=== PATIENT | female | born 1995 | race African-American/Black ===

== ENCOUNTER 2021-11-04 17:58 | Emergency (ER) | payer MEDICAID, SELFPAY ==
[2021-11-04 18:27] VITALS: BP 125/90; PULSE 96; RESP 20; TEMP 36.6; O2SAT 99; BMI 21.9
--- NOTE | 2021-11-04 18:54 | ED.GENADULT ---
HPI - General Adult General Chief complaint: Cough Stated complaint: 20 weeks , struggling to breathe Time Seen by Provider: 11/04/21 18:07 History of Present Illness HPI narrative: This 26-year-old female is 20 weeks and comes in reporting upper respiratory symptoms including cough, sore throat, generalized aches and pains, and shortness of breath. These symptoms began within the last day. She arrives with normal vital signs and oximetry at 99% on room air. She does understand some anger list but a scientist is used for [place] translation. Related Data Home Medications Medication Instructions Recorded Confirmed aspirin 81 mg tablet,delayed mg 11/04/21 release Previous Rx's Medication Instructions Recorded acetaminophen 300 mg-codeine 30 mg 1 tab PO Q6H PRN pain #20 tabs 11/04/21 tablet Allergies Allergy/AdvReac Type Severity Reaction Status Date / Time No Known Drug Allergies Allergy Verified 11/04/21 18:27 Review of Systems Status of ROS: Reports: 10 or more systems reviewed and unremarkable except as noted in History and below Narrative: Constitutional: No fevers, no weight gain or loss. Eyes: No discharge. No vision changes. HENT: Nasal congestion and sore throat with cough. Cardiovascular: No chest pain, no palpitations. Respiratory: No wheezes. Gastrointestinal: No abdominal pain, no vomiting, no diarrhea. She feels the baby moving normally. Genitourinary: No dysuria, no hematuria. Musculoskeletal: Normal range of motion. Skin: No rashes, no pruritis. Neurological: No dizziness, weakness, sensory change, speech change. Endo/Heme/Allergies: No bruising or bleeding. No polydipsia. Pysch: no suicidality, no anxiety, no insomnia. All other systems reviewed and are negative. PFSH [facility] Social History Smoking Status: Never smoker Do you use any of these nicotine containing products: None Second hand tobacco smoke exposure: No How often do you have a drink containing alcohol: never How often do you have six or more drinks on one occasion: Never AUDIT-C Alcohol total score: 0 Non-prescribed substance use: denies use service: No Exam Narrative: Exam Narrative: Constitutional: Well-developed, well-nourished, no acute distress. HEENT: Normocephalic, atraumatic. Neck: Normal range of motion. Nontender. Supple. Heart: Regular. No murmurs. Normal rate. Intact distal pulses. Lungs: Clear to auscultation. No chest discomfort. No wheezes, rhonchi, or rales. Abdomen: Normal bowel sounds. Nontender. No rebound tenderness. Genitalia: Deferred. Back: No midline tenderness. Normal range of motion. Extremities: Normal range of motion. No injury. Skin: Intact. No rash. Warm. No erythema or pallor. Neurologic: No altered sensation. No weakness. Alert and oriented. Psychiatric: No suicidality. No anxiety or depression. No insomnia. Nursing notes and vitals signs are reviewed. Const: Vital Signs, click to edit/add: Vital Signs - 24 hr 11/04/21 18:27 11/04/21 19:15 Temperature 98 F Pulse Rate [Pulse Oximeter] 96 94 Respiratory Rate 20 Blood Pressure [Ri ght Forearm] 125/90 H Pulse Oximetry 99 100 Oxygen Delivery Me thod Room Air Room Air Course Vital Signs Vital signs: Initial Vital Signs Temperature 98 F 11/04/21 18:27 Temperature Source Temporal Artery Scan 11/04/21 18:27 Pulse Rate 96 11/04/21 18:27 Pulse Rhythm 11/04/21 18:27 Respiratory Rate 20 11/04/21 18:27 Blood Pressure 125/90 H 11/04/21 18:27 Blood Pressure Mean 101 11/04/21 18:27 Blood Pressure Position Supine 11/04/21 18:27 Pulse Oximetry 99 11/04/21 18:27 Oxygen Delivery Method 11/04/21 18:27 Vital Signs Temperature 98 F 11/04/21 18:27 Pulse Rate 96 11/04/21 18:27 Respiratory Rate 20 11/04/21 18:27 Blood Pressure 125/90 H 11/04/21 18:27 Pulse Oximetry 99 11/04/21 18:27 Oxygen Delivery Method 11/04/21 18:27 Temperature 98 F 11/04/21 18:27 Pulse Rate 94 11/04/21 19:15 Respiratory Rate 20 11/04/21 18:27 Blood Pressure 125/90 H 11/04/21 18:27 Pulse Oximetry 100 11/04/21 19:15 Oxygen Delivery Method 11/04/21 19:15 Medical Decision Making MDM Narrative Medical decision making narrative: This patient is 20 weeks and comes in with upper respiratory symptoms. Her vital signs were all within normal range. Testing for COVID and influenza today are both negative. The patient is okay to return home. I did provide some tablets of Tylenol 3 for symptomatic relief. I describe signs and symptoms that would indicate a need for return and re-evaluation. Lab Data Labs: Lab Results 11/04/21 Range/Units 18:58 SARS-CoV-2 (PCR) Negative SARS-CoV-2 (Negative) Influenza Type A (PCR) Negative PCR FLU A (Negative) Influenza Type B (PCR) Negative PCR FLU B (Negative) Discharge Plan Discharge Clinical Impression: Acute upper respiratory infection Patient Disposition: Home, Self-Care Condition: Stable Instructions: Upper Respiratory Infection (ED) Additional Instructions: Take medication as needed and indicated. Follow up with MD or return if worsening. Prescriptions: New acetaminophen-codeine 300-30 mg tablet 1 tab PO Q6H PRN (Reason: pain) Qty: 20 0RF No Action aspirin 81 mg tablet,delayed release (DR/EC) Label Comments: TAKE ONE TABLET BY MOUTH EVERY DAY WITH MEAL Follow Up/Referrals: Edda Lam MD [Primary Care Provider] - Stand Alone Forms: [employer] Info Instructions
[2021-11-04 19:15] VITALS: PULSE 94; O2SAT 100
[2021-11-04 19:40] LABS: PCR FLU A Negative PCR FLU A (Negative); PCR FLU B Negative PCR FLU B (Negative)
[2021-11-04 19:49] LABS: SARS PCR* Negative SARS-CoV-2 (Negative)
== END 2021-11-04 20:20 | disposition home or self-care (01) ==
PROVIDERS: Emergency Provider Emergency Medicine Emergency Medical Services; PCP Family Medicine
DX: J06.9 Acute upper respiratory infection, unspecified (principal); Z3A.20 20 weeks gestation of pregnancy
CPT/HCPCS: 87502; 87635; 99283; 99284

== ENCOUNTER 2022-02-22 20:51 | Emergency (ER) | payer MEDICAID, SELFPAY ==
[2022-02-22 21:08] VITALS: BP 118/81; PULSE 111; RESP 20; TEMP 37.5; O2SAT 99; BMI 34.6
[2022-02-22 21:46] LABS: PCR FLU A Negative PCR FLU A (Negative); PCR FLU B Negative PCR FLU B (Negative)
[2022-02-22 21:53] LABS: SARS PCR* POSITIVE SARS-CoV-2 (Negative)
--- NOTE | 2022-02-22 22:09 | ED_ITS ---
HPI - General Adult General Time Seen by Provider: 22:10 Date Seen: 02/22/22 Chief complaint: Cough Stated complaint: Fever,Cough Time Seen by Provider: 02/22/22 21:53 Source: patient and court interpreter Mode of arrival: ambulatory Limitations: no limitations History of Present Illness HPI narrative: 26-year-old at about 36 weeks who presents today with cough, body aches, fever, headache, runny nose starting 2 days ago. Has taken Tylenol with minimal improvement. No vaginal bleeding or vaginal discharge, no abdominal pain or cramping, positive movement. No breathing difficulty. No abdominal pain did have some vomiting earlier. Related Data Home Medications Medication Instructions Recorded Confirmed aspirin 81 mg tablet,delayed 81 mg PO DAILY 11/04/21 02/22/22 release famotidine 20 mg tablet 20 mg PO Q12H 02/22/22 02/22/22 polyethylene glycol 3350 17 17 g PO DAILY 02/22/22 02/22/22 gram/dose oral powder Allergies Allergy/AdvReac Type Severity Reaction Status Date / Time No Known Drug Allergies Allergy Verified 11/04/21 18:27 Review of Systems Status of ROS: Reports: 10 or more systems reviewed and unremarkable except as noted in History and below PFSH PFSH Medical History COVID-19 Surgical History No significant past surgical history Social History Smoking Status: Never smoker Do you use any of these nicotine containing products: None Second hand tobacco smoke exposure: No How often do you have a drink containing alcohol: never How often do you have six or more drinks on one occasion: Never AUDIT-C Alcohol total score: 0 Non-prescribed substance use: denies use service: No Exam Narrative: Exam Narrative: General: Well-developed and well-nourished, no acute distress Head: Atraumatic and normocephalic Eyes: Pupils are equal reactive, extraocular motions intact, conjunctiva clear ENT: External nose and ears are normal, posterior pharynx without erythema or exudate Neck: No midline cervical tenderness, full spontaneous range of motion the neck, trachea midline, no adenopathy Heart: Regular rate and rhythm no murmurs or thrills Lungs: Clear to auscultation bilaterally without wheezes or crackles Abdomen: Soft, gravid, nontender Musculoskeletal: No tenderness, deformity, or edema Neurologic: Awake, alert, and oriented x3, no gross focal neurologic deficits, cranial nerves intact as tested Psych: Mood and affect are appropriate Skin: No rashes Const: Vital Signs, click to edit/add: Vital Signs - 24 hr 02/22/22 21:08 Temperature 99.5 F Pulse Rate [Right Pulse Oximeter] 111 H Respiratory Rate 20 Blood Pressure [Ri ght Upper Arm] 118/81 Pulse Oximetry 99 Oxygen Delivery Me thod Room Air Course Course Hospital Course: Patient seen and examined, prior records reviewed. Patient presents with upper respiratory symptoms plus body aches, fever. COVID positive. No respiratory distress, lungs are clear, no hypoxia. Discussed diagnosis with patient, she is not a candidate for antivirals. Continue symptom management. Will have Women's Health evaluate , patient has no -related complaints today. Vital Signs Vital signs: Initial Vital Signs Temperature 99.5 F 02/22/22 21:08 Temperature Source Temporal Artery Scan 02/22/22 21:08 Pulse Rate 111 H 02/22/22 21:08 Respiratory Rate 20 02/22/22 21:08 Blood Pressure 118/81 02/22/22 21:08 Blood Pressure Mean 93 02/22/22 21:08 Blood Pressure Position Sitting 02/22/22 21:08 Pulse Oximetry 99 02/22/22 21:08 Oxygen Delivery Method 02/22/22 21:08 Vital Signs Temperature 99.5 F 02/22/22 21:08 Pulse Rate 111 H 02/22/22 21:08 Respiratory Rate 20 02/22/22 21:08 Blood Pressure 118/81 02/22/22 21:08 Pulse Oximetry 99 02/22/22 21:08 Oxygen Delivery Method 02/22/22 21:08 Temperature 99.5 F 02/22/22 21:08 Pulse Rate 111 H 02/22/22 21:08 Respiratory Rate 20 02/22/22 21:08 Blood Pressure 118/81 02/22/22 21:08 Pulse Oximetry 99 02/22/22 21:08 Oxygen Delivery Method 02/22/22 21:08 Medical Decision Making Medical Records Medical records reviewed: Yes I reviewed the patient's medical records Lab Data Lab results reviewed: Yes I reviewed the patient's lab results Labs: Lab Results 02/22/22 Range/Units 21:00 SARS-CoV-2 (PCR) POSITIVE SARS-CoV-2 A (Negative) Influenza Type A (PCR) Negative PCR FLU A (Negative) Influenza Type B (PCR) Negative PCR FLU B (Negative) Discharge Plan Discharge Clinical Impression: COVID-19 affecting in third trimester Patient Disposition: Home w/ Parent or Adult Condition: Stable Instructions: COVID-19 (Coronavirus Disease 2019) (ED) Additional Instructions: Continue Tylenol, make sure you are drinking plenty of fluids. Use medicine for nausea as needed. Follow-up with your doctor next week. Activity Level: No Restrictions Discharge Diet: Regular Prescriptions: No Action aspirin 81 mg tablet,delayed release (DR/EC) 81 mg PO DAILY Label Comments: TAKE ONE TABLET BY MOUTH EVERY DAY WITH MEAL famotidine 20 mg tablet 20 mg PO Q12H Label Comments: TAKE ONE TABLET BY MOUTH TWICE A DAY polyethylene glycol 3350 17 gram/dose powder 17 g PO DAILY Label Comments: MIX ONE SCOOP (17GM) IN LIQUID THEN TAKE BY MOUTH ONCE DAILY. Follow Up/Referrals: Edda Lam MD [Primary Care Provider] - Stand Alone Forms: [email or web address] Info Instructions
--- NOTE | 2022-02-22 22:55 | ED.NURSE ---
OB RN at bedside monitoring HR.
== END 2022-02-22 23:52 | disposition home or self-care (01) ==
LOC: ED 22:13
PROVIDERS: Emergency Provider Family Medicine; PCP Family Medicine
DX: O98.513 Other viral diseases complicating pregnancy, third trimester (principal); U07.1 COVID-19; Z86.16 Personal history of COVID-19; Z3A.36 36 weeks gestation of pregnancy
CPT/HCPCS: 87631; 99284

== ENCOUNTER 2022-03-12 18:56 | Inpatient (IN) | payer MEDICAID, SELFPAY ==
[2022-03-12 19:02] VITALS: BP 134/90; PULSE 113
[2022-03-12 19:29] VITALS: BMI 35.4
[2022-03-12] MEDS: miSOPROStoL 25 MCG/0.25 TABLET PO ×2 (19:42→22:17)
[2022-03-12 19:45] VITALS: TEMP 37.1
[2022-03-12 20:28] LABS: SARS PCR* Negative SARS-CoV-2 (Negative)
[2022-03-12 21:53] VITALS: BP 142/91; PULSE 86
[2022-03-12 22:15] VITALS: BP 119/67; PULSE 91; TEMP 36.9
[2022-03-12 23:30] VITALS: TEMP 37.3
[2022-03-13] VITALS (21 sets, daily range): BP systolic 103–179; BP diastolic 54–98; PULSE 80–102; RESP 16–18; TEMP 36.6–37.2
[2022-03-13] MEDS: miSOPROStoL 25 MCG/0.25 TABLET PO ×4 (00:17→08:54)
--- NOTE | 2022-03-13 08:52 | PM.OBHPLI ---
OB - H&P: HPI Labor/Induction History of Present Illness Time Seen by Provider: 08:52 Date Seen: 03/13/22 Chief Complaint: The patient is a 26 year old 1 para 0 at 38+6 weeks gestation by LMP c/w 10wk US, who presents with leaking fluid. Chief complaint: Maternity : 1 Para: 0 Date of last menstrual period: 06/14/21 Estimated date of delivery: 03/21/22 Gestational age based on last menstrual period: 38 Narrative: Paula Newman is a 26 year old 1 para 0 at 38+6 weeks gestation by LMP c/w 10wk US, who presents with leaking fluid. 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 Given obesity and primary, she received aspirin 15-36 weeks. She presented to clinic on day of admission for routine visit. Reported wetness in her underwear for about the last 72 hours. Otherwise feeling well. No fever/chills/sweats, abdominal pain or purulent discharge. AmniSure was collected and positive. Patient was directed to Labor and delivery for induction of labor for PROM at term. She was found to be teena occasionally. FHT category 1. She is GBS negative. Labs Blood type: A (+) positive Rubella: immune RPR/VDLR: nonreactive GBS status: negative HBsAG: negative Review of Systems Status of ROS: Reports: 10 or more systems reviewed and unremarkable except as noted in History and below Meds Home Medications and Allergies Home Medications Medication Instructions Recorded Confirmed Type aspirin 81 mg tablet,delayed 81 mg PO DAILY 11/04/21 03/12/22 History release famotidine 20 mg tablet 20 mg PO Q12H 02/22/22 03/12/22 History polyethylene glycol 3350 17 17 g PO DAILY 02/22/22 03/12/22 History gram/dose oral powder Allergies Allergy/AdvReac Type Severity Reaction Status Date / Time No Known Drug Allergies Allergy Verified 11/04/21 18:27 OB - H&P: Exam Physical Exam: Vital signs: Temp Pulse Resp BP 97.9 F 80 16 103/54 L 03/13/22 08:23 03/13/22 05:52 03/13/22 08:23 03/13/22 05:52 Narrative: General: Well-appearing adult female. Lying in bed. Alert, oriented and appropriate. No acute distress. HEENT: EOMI, no conjunctival injection. No nasal discharge. Mucous membranes moist. Neck: Supple. Cardiovascular: Regular rate and rhythm, no rubs, murmurs or extra heart sounds. Pulmonary: Clear to auscultation bilaterally. No wheezes, rales or rhonchi. Breathing comfortably on room air. Abdomen: Gravid. Soft, nontender. MSK: Grossly normal range of motion of all extremities. Skin: Warm and dry. No rash appreciated. Neuro: Cranial nerves 2-12 grossly intact. Grossly normal strength and sensation. No focal deficits. Psych: Appropriate affect. Detailed Labor and Delivery Exam: Dilation (cm): 0 (0.5 cm external os) Effacement (%): 50 Cervix position: anterior Consistency: medium Contraction frequency (min): 5 Fetus (Single): Station: -3 Amniotic Membrane Status: AROM Amniotic Membrane Fluid Description: Clear Heart Rate Baseline: 130 Monitor Accelerations: Present Monitor Decelerations: None OB - Problem Based A/P Additional Plan (1) Term : Status: Acute Plan: - Continue cytotec induction. S/p 5 doses - Plan transition to pitocin once cytotec complete - Prolonged ROM. Monitor closely for signs of infection - GBS negative - Epidural at request - Anticipate vaginal delivery (2) PROM (premature rupture of membranes): Status: Acute (3) Obesity (BMI 30.0-34.9): Status: Acute (4) Female genital mutilation: Status: Acute (5) COVID-19 affecting in third trimester: Status: Acute Plan - Covid-19 positive in ED on 02/22/22. Negative on admission. Clinically well.
[2022-03-13] MEDS: LACTATED RINGERS 1000 ML 1,000 ML 123 ML IV (13:29)
[2022-03-13] MEDS: OXYTOCIN 30 unit/500 ML in NS 30 UNIT/500 ML BAG IVPB (13:30)
[2022-03-13 13:33] LABS: Basophils Absolute Auto 0.03 K/uL (0.00-0.30); Basophils Percent Auto 0.4 % (0.0-3.0); Eosinophils Absolute Auto 0.05 K/uL (0.00-0.50); Eosinophils Percent Auto 0.6 % (0.0-7.0); Hematocrit 36.7 % (33.0-51.0); Hemoglobin* 12.9 gm/dL (12.0-16.0); Immature Granulocytes Abs Auto 0.09 K/uL (0.00-0.30); Immature Granulocytes Pct Auto 1.1 %; Lymphocytes Absolute Auto 1.95 K/uL (0.90-2.90); Lymphocytes Percent Auto 24.9 % (20-44); Mean Corpuscular HGB Conc 35 gm/dL (32-36); Mean Corpuscular Hemoglobin 33 pg (26-34); Mean Corpuscular Volume 95 fL (80-100); Monocytes Percent Auto 8.2 % (0.0-11.0); Neutrophils Absolute Auto 5.07 K/uL (1.7-7.0); Neutrophils Percent Auto 64.8 % (42.0-72.0); Platelet Count* 237 K/uL (140-440); RDW Coefficient of Variation % 12.5 % (11.5-15.5); Red Blood Count 3.87 m/uL (4.00-5.20); White Blood Count* 7.83 K/uL (4.50-11.00)
[2022-03-13 13:44] LABS: Slide Review Reflex No
[2022-03-13] MEDS: DINOPROSTONE 10 MG VAGINAL INSERT VAGINAL (18:43)
--- NOTE | 2022-03-13 18:48 | PM.OBPNL ---
Subjective Time Seen by Provider: 18:48 Date Seen: 03/13/22 Narrative: IOL for SROM, unknown duration. S/p cytotec x 6 doses, then transitioned to pitocin at 1330. Cervical exam at 1700 relatively unchanged since admission, fingertip. Patient requested something for pain and received a dose of fentanyl with good results. Objective Vital Signs: Last Vital Signs Temp 98.7 F 03/13/22 16:21 Pulse 93 03/13/22 16:20 Resp 18 03/13/22 16:21 BP 128/79 03/13/22 16:20 Pelvic Exam Dilation (cm): 1 Effacement (%): 75 Station: -3 Contractions Contraction Frequency: 1-4 Pitocin Rate (mU/min): 6 Assessment Station: -3 Amniotic Membrane Status: SROM Heart Rate Baseline: 125 Monitor Accelerations: Present Monitor Decelerations: None Plan Plan: - Pit stopped at 1730. Cervidil placed at 1830 for additional cervical ripening overnight. - Transition to pitocin with active labor or after 12 hours - Patient may have epidural upon request - SROM for unkown duration, >24 hours. Clear fluid. Monitor closely for signs of infection - GBS negative - Anticipate vaginal delivery
[2022-03-13] MEDS: hydrOXYzine pamoate 25 MG CAPSULE 100 MG PO (22:02)
[2022-03-13] MEDS: MORPHINE 10 MG/ML inj IM (22:03)
[2022-03-14] VITALS (94 sets, daily range): BP systolic 96–155; BP diastolic 51–86; PULSE 83–133; RESP 16–18; TEMP 36.8–39.4; O2SAT 96–100
[2022-03-14] MEDS: LIDOCAINE 2% (PF) 5 ML VIAL EPIDURAL (03:54)
[2022-03-14] MEDS: ROPIVACAINE 0.2 % PF 10 ML INJ 20 MG EPIDURAL (03:54)
[2022-03-14] MEDS: ROPIVACAINE 0.2% 100 ml 100 ML 12 MG EPIDURAL ×2 (03:55→12:31)
--- NOTE | 2022-03-14 03:59 | PM.ANBPRC ---
[facility] Medical History (Updated 03/13/22 @ 09:11 by Edda Lam MD) COVID-19 Elective surgery Surgical History No significant past surgical history Social History Smoking Status: Never smoker Do you use any of these nicotine containing products: None Second hand tobacco smoke exposure: No How often do you have a drink containing alcohol: never How often do you have six or more drinks on one occasion: Never AUDIT-C Alcohol total score: 0 Non-prescribed substance use: denies use service: No Meds Home Medications and Allergies Home Medications Medication Instructions Recorded Confirmed Type aspirin 81 mg tablet,delayed 81 mg PO DAILY 11/04/21 03/12/22 History release famotidine 20 mg tablet 20 mg PO Q12H 02/22/22 03/12/22 History polyethylene glycol 3350 17 17 g PO DAILY 02/22/22 03/12/22 History gram/dose oral powder Allergies Allergy/AdvReac Type Severity Reaction Status Date / Time No Known Drug Allergies Allergy Verified 03/13/22 09:23 Results Labs Labs: Laboratory Results - last 24 hr 03/13/22 03/13/22 13:24 13:24 WBC 7.83 RBC 3.87 L Hgb 12.9 Hct 36.7 MCV 95 MCH 33 MCHC 35 RDW Coeff of Danika 12.5 Plt Count 237 Neut % (Auto) 64.8 Lymph % (Auto) 24.9 Morton % (Auto) 8.2 Eos % (Auto) 0.6 Baso % (Auto) 0.4 Neut # (Auto) 5.07 Lymph # (Auto) 1.95 Morton # (Auto) 0.60 Eos # (Auto) 0.05 Baso # (Auto) 0.03 Abs Immat Gran (auto) 0.09 Imm/Tot Granulo (auto) 1.1 Blood Type A Positive Antibody Screen NEGATIVE Vital Signs Vital Signs: Last Vital Signs Temp 97.8 F 03/13/22 23:21 Pulse 126 H 03/14/22 03:58 Resp 16 03/13/22 23:21 BP 151/78 H 03/14/22 03:58 Pulse Ox 98 03/14/22 03:54 Weight: 99.473 kg Height: 167.64 cm Anesthesia Procedures Epidural Insertion Patient Location: OB Start Time: 03:00 Stop Time: 03:59 Start Date: 03/14/22 Stop Date: 03/14/22 Reason for Block: procedure for pain Patient Position: sitting Performed By: Sameer Roberto Preanesthetic Checklist: IV checked, risks and benefits discussed, surgical consent, monitors and equipment checked, pre-op evaluation, timeout performed and anesthesia consent Prep: chlorhexidine gluconate Monitoring: blood pressure monitoring, continuous pulse oximetry and heart rate Approach: midline Vertebral Space: lumbar (1-5) Needle Type: Tuohy needle Injection Technique: continuous catheter Needle gauge: 17 Needle Length (cm): 10 cm Needle Insertion Depth (cm): 7 Catheter Gauge: 19 Catheter Type: multi-orifice Catheter at skin depth (cm): 13 Test Dose Result: negative and lidocaine 1.5% with epinephrine 1 to 200,000
[2022-03-14] MEDS: OXYTOCIN 30 unit/500 ML in NS 30 UNIT/500 ML BAG IVPB (07:49)
[2022-03-14] MEDS: LACTATED RINGERS 1000 ML 1,000 ML 725 ML IV (08:24)
--- NOTE | 2022-03-14 09:21 | PM.OBPNL ---
Subjective Time Seen by Provider: : Date Seen: 03/14/22 Narrative: Patient requested epidural overnight, placed 0400. Cervidil removed at 0645 after 12 hours. This AM resting comfortably, got some sleep. Feeling some vaginal pressure. Objective Vital Signs: Last Vital Signs Temp 98.7 F 03/14/22 08:22 Pulse 83 03/14/22 09:21 Resp 16 03/14/22 08:22 BP 104/72 03/14/22 09:21 Pulse Ox 97 03/14/22 05:09 Pelvic Exam Dilation (cm): 5 Effacement (%): 90 Station: 0 Assessment Heart Rate Baseline: 125 Plan Plan: - Good progress overnight with cervidil - Pain controlled with epidural - Pitocin started - IUPC placed - Prolonged rupture. Monitor for signs of maternal infection. Currently afebrile - Category I tracing - Anticipate vaginal delivery
[2022-03-14] MEDS: LIDOCAINE 1% MDV 20 ML INJECTION (15:46)
[2022-03-14] MEDS: miSOPROStoL 800 MCG/4 TABLET PR (15:56)
[2022-03-14] MEDS: METHYLERGONOVINE MALEATE 0.2 MG/ML INJ IM (15:59)
[2022-03-14] MEDS: ACETAMINOPHEN 500 MG TABLET 1000 MG PO ×2 (16:08→23:37)
--- NOTE | 2022-03-14 17:27 | PM.OBPRCVD ---
Procedure Delivery date: 03/14/22 Procedure Done: Global Narrative: The patient is a 26 year-old admitted on 03/12/22 at 38 Weeks, 6 Days gestation for PROM. Patient presented to clinic for routine visit and reported leaking for 72 hours; Amnisure was positive. Cervical exam on admission was closed and high with membranes ruptured in vertex presentation.? Contractions were occasional.? heart rate demonstrated baseline 125 bpm with moderate variability, + accelerations, - decelerations; a category 1 tracing.? SROM occurred at unknown time with clear fluid. Patient received oral cytotec x6 doses, transitioned to pitocin. Found to be 1 cm/high after 5-6 hours of pitocin PM on 03/13. Pit was stopped. Cervidil was placed overnight. Epidural placed per patient request at 0355. Found to be 5/90/0 at 0900 on 03/14. Pitocin was restarted. ? Labor Analgesia:? Fentanyl and epidural ? Pitocin:? Yes ? Labor onset:? 0300 on 03/14/22 ? Complete:?1223 ? Pushing:? 1253 ? heart tones during second stage were Category II with some early variables. ? At 1546 a viable female delivered in vertex OA presentation over intact perineum via spontaneous vaginal delivery.? was placed on maternal abdomen.? Cord was clamped and cut after a 30-60 second delay.? Nose and mouth were bulb suctioned.? Infant weight pending.? 8 at 1 minute and 9 at 5 minutes.? Shoulder dystocia: no.? Nuchal cord: yes, reduced. ? Placenta delivered spontaneously and complete at 1550 with a 3 vessel cord. ? Lacerations:? Partial third degree perineal and bilateral sulcus extensions. Dr. Swift was consulted for repair. Mother had a hemorrhage requiring cytotec and methergine. Bakri balloon was placed, but expelled shortly thereafter. Hemorrhage was also managed by Dr. Swift. See her documentation for additional details. Prolonged ROM. Temps were normal until after delivery, when temp spiked to 102. Patient received tylenol. Second temp to 102 was measured one hour later. Antibiotics intiated. ? Blood loss: 1133 mL. Blood loss measurement type: QBL ? Sponge and needles counts are correct. Infant was stable after delivery.
--- NOTE | 2022-03-14 17:38 | PM.OBCN1 ---
OB - CN: HPI Date of Consult Time Seen by Provider: 15:30 Date Seen: 03/14/22 Patient: Salazar Patient Consult date: 03/14/22 Requesting Physician: Edda Lam MD Primary Care Provider: Edda Lam MD Consult Narrative Narrative: Paula is a 26 year old G 1 P 0 at 39 and 1/7 weeks gestation that was admitted to the Center on 03/12/22 for prolonged rupture of membranes. LANE: 03/20/2022. She was seen by Dr. Lam in the office for visit in reported leaking fluid for 2-3 days. She had cervical ripening with p.o. Cytotec follow-up by IV Pitocin then Cervidil. She finally started progressing through labor today on 03/14/2022. She was completely dilated at 12:23 p.m. started pushing at approximately 1:00 p.m. I was present at the time of delivery due to the patient having female genital mutilation and concern for possible significant laceration. After delivery of the placenta there was significant uterine atony resulting in a hemorrhage. She also had a partial 3rd degree perineal laceration with bilateral sulcus extensions. She had an epidural for labor analgesia that was not working very well so receive 30 mL of local 1% lidocaine +50 mcg of fentanyl IV. I was asked to assess the patient's serration and perform the laceration repair. Please see Dr. Lam's delivery note for details. MEDICAL HISTORY: 1. 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 BMI 30.0-34.9 SURGICAL HISTORY: 1. 05/08/2021 Lysis of adhesions to normalize genital anatomy OBSTETRIC/GYNECOLOGIC HISTORY: This is the patient's 1st Cis gender, heterosexual woman Sexually transmitted infections: No Pelvic inflammatory disease: No MRSA infection: No. History of abnormal Pap smears: No. Nothing for contraception SOCIAL HISTORY: Relationship status: . Job: Not applicable Education: Not applicable Smoker: Tobacco: Lifetime nonsmoker E-cigarettes: No Alcohol consumption: No. Illicit or Recreational drug use: No. Concerns for safety at home/work: No. Would like to discuss issues of abuse: No. Dietary restrictions: Exercise: No FAMILY HISTORY: Negative for recurrent defects, stillbirth, recurrent loss, mental disabilities, genetic or inherited disorders. ALLERGIES: NKDA History of Present Dating criteria: based on LMP care: good care Ultrasounds: normal 1st trimester US and normal mid trimester US complications comment: Prolonged rupture membranes, hemorrhage, fever. Medical Complications: BMI 30.0-34.9 History History 1 Elective abortions Para 0 Spontaneous abortions Hx # Term Pregnancies Ectopic pregnancies Hx # Pregnancies Multiple births Number of Living Children 0 Labs Blood type: A (+) positive Rubella: immune RPR/VDLR: nonreactive GBS status: negative HBsAG: negative OB Labs: Lab Assessment Start: 03/12/22 19:16 Freq: ONCE Status: Complete Protocol: [facility] LimitedOBGBS Activity Type Activity Date Activity User E-sign Co-sign Detail Recorded Client Recorded Date Recorded By Document 03/12/22 19:51 [facility] [id number] 03/12/22 19:52 [facility] 03/12/22 19:51 Lab Assessment GBS Negative Previous with Invasive GBS No Is Patient Allergic to Penicillin No No Treatment Needed OK Maternal Blood Type A Maternal RH Factor Positive Evaluate Maternal Rubella Immune Status Immune Hepatitis B Surface Antigen Negative Maternal HIV Status Negative Maternal Syphillis (RPR) Status Negative Are Labs Available Yes [facility] Medical History (Updated 03/13/22 @ 09:11 by Edda Lam MD) COVID-19 Elective surgery Surgical History No significant past surgical history Social History Smoking Status: Never smoker Do you use any of these nicotine containing products: None Second hand tobacco smoke exposure: No How often do you have a drink containing alcohol: never How often do you have six or more drinks on one occasion: Never AUDIT-C Alcohol total score: 0 Non-prescribed substance use: denies use service: No Meds Home Medications and Allergies Home Medications Medication Instructions Recorded Confirmed Type aspirin 81 mg tablet,delayed 81 mg PO DAILY 11/04/21 03/12/22 History release famotidine 20 mg tablet 20 mg PO Q12H 02/22/22 03/12/22 History polyethylene glycol 3350 17 17 g PO DAILY 02/22/22 03/12/22 History gram/dose oral powder Allergies Allergy/AdvReac Type Severity Reaction Status Date / Time No Known Drug Allergies Allergy Verified 03/13/22 09:23 OB - H&P: Exam Physical Exam: Vital signs: Temp Pulse Resp BP Pulse Ox 102.9 F H 126 H 16 126/64 98 03/14/22 16:08 03/14/22 17:33 03/14/22 08:22 03/14/22 17:33 03/14/22 17:10 Narrative: I was present for the vaginal delivery of a term female at 3:46 p.m. on 03/14/2022. I was asked for consultation to perform the laceration repair. On exam the laceration was noted to be complex with a partial 3rd degree perineal laceration with bilateral sulcus extensions of the apex. A Lopez catheter was placed. Right angle retractors were used to retract the labia and lateral vaginal wall. Yankauer suction was used to aid in visualization. After the placenta deliver there is noted to be significant uterine atony that was treated with 800 mg Cytotec rectally, Methergine 0.2 mg IM x1, 1 g IV TXA. A Bakri balloon was placed with 200 mL saline which was expelled by uterine contractions approximately 30 minutes later. The partial third-degree laceration was repaired in layers. Anal sphincter was reinforced using 3-0 Vicryl. Allis clamps were placed on the external anal sphincter fascia. Three fear of 8 Vicryl sutures were then placed. One superior superior to, 1 inferior to and 1 just below the Allis clamps. A 2nd and 3rd 3-0 Vicryl suture was used to reapproximate the apices of the sulcus tears. These were repaired with a combination of figure of 8 sutures and running locked sutures. A 4th 3 0 Vicryl suture was then used to repair the remaining second-degree perineal laceration. There were also small periurethral, first-degree lacerations that were bleeding that were reapproximated using 4-0 Vicryl in a combination of interrupted, figure of 8 and running locked sutures. A vaginal pack was then placed. The vaginal pack should be removed in the morning after approximately 12 hours. The patient had a fever noted at 3:59 p.m. 102.9? F orally. She was given 1000 mg of extra-strength Tylenol at approximately 4:10 p.m.. Her temperature was reach checked at 5:00 p.m. and noted to be 102+ degrees F. A CBC with differential, UA and UC, blood cultures x2, PT/INR, PTT and fibrinogen were all ordered stat. The patient was tachycardic to 123 beats per minute but blood pressure always was normal. Suspect that her temperature was elevated secondary to her fever and not due to hypovolemia and anemia. She will be on Zosyn 3.375 mg IV every 6 hours until she is 24 hours without a fever. Weight laboratory results. CBC with differential will be ordered for tomorrow morning. Blood type: A positive. OB - CN: A/P Assessment and Plan (1) Term : Status: Acute (2) PROM (premature rupture of membranes): Status: Acute (3) Obesity (BMI 30.0-34.9): Status: Acute (4) Female genital mutilation: Status: Acute (5) COVID-19 affecting in third trimester: Status: Acute Plan 1. For fever: Await results of urinalysis/urine culture, CBC with diff, cultures x2. Zosyn 3.375 mg IV every 6 hours until 24 hours without a fever. Placenta sent to pathology due to prolonged rupture of membranes and immediate fever. ? Chorioamnionitis 2. For hemorrhage: CBC with diff, PT/INR, PTT and fibrinogen all ordered. Blood transfusion if indicated. The patient had normal blood pressure and elevated pulse . However she was also febrile. No evidence of sepsis. 3. OBGYN will plan to follow .
[2022-03-14 17:39] LABS: Basophils Percent Auto 0.1 % (0.0-3.0); Hematocrit 31.4 % (33.0-51.0); Hemoglobin* 10.9 gm/dL (12.0-16.0); Immature Granulocytes Pct Auto 0.4 %; Lymphocytes Percent Auto 2.8 % (20-44); Mean Corpuscular HGB Conc 35 gm/dL (32-36); Mean Corpuscular Hemoglobin 33 pg (26-34); Mean Corpuscular Volume 96 fL (80-100); Monocytes Percent Auto 5.7 % (0.0-11.0); Platelet Count* 241 K/uL (140-440); RDW Coefficient of Variation % 12.6 % (11.5-15.5); Red Blood Count 3.27 m/uL (4.00-5.20); White Blood Count* 21.53 K/uL (4.50-11.00)
[2022-03-14 17:40] LABS: Slide Review Reflex No
[2022-03-14 17:53] LABS: Appearance Urine Clear (Clear); Bilirubin Urine Negative (Negative); Blood Urine 2+ (Negative); Color Urine Yellow (Yellow); Glucose Urine Negative (Negative); Ketones Urine Trace (Negative); Leukocyte Esterase Urine Negative (Negative); Nitrite Urine Negative (Negative); Protein Urine 2+ (Negative)
[2022-03-14] MEDS: TRANEXAMIC ACID 100 MG/ML INJ 1000 MG IV (17:54)
[2022-03-14 18:00] LABS: Squamous Epithelial Cell Urine Few (None-Few); WBC Urine 0-2 (0-5)
[2022-03-14 18:10] LABS: Prothrombin Time 13.8 Seconds
[2022-03-14 18:11] LABS: Partial Thromboplastin Time* 27 Seconds (23-33)
[2022-03-14 18:12] LABS: Fibrinogen* 455 mg/dL (200-450)
[2022-03-14] MEDS: PIPERACILLIN/TAZOBACTAM 3.375 GM in 0.9 % SODIUM CHLORIDE Mini-bag 100 ML IVPB (18:31)
[2022-03-14] MEDS: IBUPROFEN 600 MG TABLET PO (19:38)
[2022-03-14] MEDS: lidocaine HCL 2 % JELLY (TOP) STERILE 6 ML TOPICAL (21:38)
[2022-03-15] MEDS: PIPERACILLIN/TAZOBACTAM 3.375 GM in 0.9 % SODIUM CHLORIDE Mini-bag 100 ML IVPB ×3 (00:32→12:22)
[2022-03-15] MEDS: IBUPROFEN 600 MG TABLET PO ×3 (01:32→19:35)
[2022-03-15] MEDS: ACETAMINOPHEN 500 MG TABLET 1000 MG PO ×3 (05:19→22:26)
[2022-03-15 05:20] VITALS: BP 109/77; PULSE 94; RESP 16; TEMP 36.3; O2SAT 98
[2022-03-15 06:37] LABS: Basophils Percent Auto 0.2 % (0.0-3.0); Eosinophils Percent Auto 0.5 % (0.0-7.0); Hematocrit 22.7 % (33.0-51.0); Immature Granulocytes Pct Auto 0.5 %; Lymphocytes Percent Auto 15.2 % (20-44); Mean Corpuscular HGB Conc 35 gm/dL (32-36); Mean Corpuscular Hemoglobin 34 pg (26-34); Mean Corpuscular Volume 97 fL (80-100); Monocytes Percent Auto 7.2 % (0.0-11.0); Neutrophils Percent Auto 76.4 % (42.0-72.0); Platelet Count* 207 K/uL (140-440); RDW Coefficient of Variation % 12.9 % (11.5-15.5); Red Blood Count 2.33 m/uL (4.00-5.20); White Blood Count* 18.92 K/uL (4.50-11.00)
[2022-03-15 06:38] LABS: Hemoglobin* 7.9 gm/dL (12.0-16.0)
[2022-03-15 06:39] LABS: Slide Review Reflex No
--- NOTE | 2022-03-15 07:33 | PM.OBPNVD1 ---
OB - PN:Subj Subjective Time Seen by Provider: 07:33 Date Seen: 03/15/22 Narrative: Patient overall feeling well. Endorses mild pain in her bottom. Lidocaine gel was applied around her catheter overnight. Got some sleep; fed baby with formula overnight. Hemoglobin 7.9 this AM. OB - PN: Obj Exam Physical Exam: Vital signs: Temp Pulse Resp BP Pulse Ox O2 Del Method 97.4 F L 94 16 109/77 98 03/15/22 05:20 03/15/22 05:20 03/15/22 05:20 03/15/22 05:20 03/15/22 05:20 03/15/22 05:20 Narrative: General: Well appearing adult female. Lying back in hospital bed. Alert, oriented and appropriate. No acute distress. HEENT: EOMI, no conjunctival injection. No nasal discharge. Mucous membranes moist. Neck: Supple. Cardiovascular: Regular rate and rhythm, no rubs, murmurs or extra heart sounds. Pulmonary: Clear to auscultation bilaterally, no wheezes, rales or rhonchi. Abdomen: Soft, mild tenderness to palpation of the uterine fundus. Fundus is deviated to the maternal right, the level the umbilicus. Extremities: Warm and well perfused. SCDs in place. No edema. Skin: Warm and dry. No rashes appreciated. Neuro: Grossly normal active range of motion of all extremities. Psych: Appropriate affect. Urinary Catheter Management: Urethral: Cath placed during this visit: yes Urethral indwelling: Yes Reason for continuing: assist healing open wound Insertion date: 03/14/22 Insertion time: 17:30 OB - PN: Obj Data Labs Labs: Laboratory Results - last 24 hr 03/14/22 03/14/22 03/14/22 17:30 17:30 17:46 WBC 21.53 H RBC 3.27 L Hgb 10.9 L Hct 31.4 L MCV 96 MCH 33 MCHC 35 RDW Coeff of Danika 12.6 Plt Count 241 Neut % (Auto) 91.0 H Lymph % (Auto) 2.8 L [place] % (Auto) 5.7 Eos % (Auto) 0.0 Baso % (Auto) 0.1 Neut # (Auto) 19.60 H Lymph # (Auto) 0.60 L [place] # (Auto) 1.20 H Eos # (Auto) 0.00 Baso # (Auto) 0.00 Abs Immat Gran (auto) 0.10 Imm/Tot Granulo (auto) 0.4 INR 1.00 APTT 27 Fibrinogen 455 H Urine Color Yellow Urine Appearance Clear Urine pH 7.0 Ur Specific [place] 1.020 Urine Protein 2+ A Urine Glucose (UA) Negative Urine Ketones Trace A Urine Blood 2+ A Urine Nitrite Negative Urine Bilirubin Negative Urine Urobilinogen 1.0 Ur Leukocyte Esterase Negative Urine RBC 10-25 A Urine WBC 0-2 Ur Squamous Epith Cells Few Urine Bacteria None 03/15/22 06:05 WBC 18.92 H RBC 2.33 L Hgb 7.9 L* Hct 22.7 L MCV 97 MCH 34 MCHC 35 RDW Coeff of Danika 12.9 Plt Count 207 Neut % (Auto) 76.4 H Lymph % (Auto) 15.2 L [place] % (Auto) 7.2 Eos % (Auto) 0.5 Baso % (Auto) 0.2 Neut # (Auto) 14.50 H Lymph # (Auto) 2.90 [place] # (Auto) 1.40 H Eos # (Auto) 0.10 Baso # (Auto) 0.00 Abs Immat Gran (auto) 0.10 Imm/Tot Granulo (auto) 0.5 INR APTT Fibrinogen Urine Color Urine Appearance Urine pH Ur Specific [place] Urine Protein Urine Glucose (UA) Urine Ketones Urine Blood Urine Nitrite Urine Bilirubin Urine Urobilinogen Ur Leukocyte Esterase Urine RBC Urine WBC Ur Squamous Epith Cells Urine Bacteria OB - PN: A/P Vaginal Delivery Assessment and Plan (1) (normal spontaneous vaginal delivery): Status: Acute Assessment and Plan: - Routine post- cares - Encouraged . Discussed supplementing if desired until maternal milk is in. - Anticipate discharge 03/16 (2) fever: Status: Acute Assessment and Plan: - Maternal fever to 102.9 after delivery - Continue zosyn until 24 hours afebrile (3) hemorrhage: Status: Acute Assessment and Plan: - QBL >1 L. Hemoglobin this AM 7.9 - Iron at discharge (4) Third degree perineal laceration during delivery with less than 50% tear of external anal sphincter: Status: Acute Assessment and Plan: - Vaginal packing to be removed by TRANSFORMER INSPECTOR this AM - Scheduled tylenol and ibuprofen. Oyxcodone available if needed. - Scheduled stool softener (5) Term : Status: Acute (6) PROM (premature rupture of membranes): Status: Acute (7) Obesity (BMI 30.0-34.9): Status: Acute (8) Female genital mutilation: Status: Acute (9) COVID-19 affecting in third trimester: Status: Acute (10) Prolonged rupture of membranes: Status: Acute
[2022-03-15 08:00] VITALS: BP 109/76; PULSE 93; RESP 18; TEMP 36.7; O2SAT 100
--- NOTE | 2022-03-15 08:24 | PM.OBCN1 ---
OB - CN: HPI Date of Consult Time Seen by Provider: 08:25 Date Seen: 03/15/22 Consult date: 03/15/22 Requesting Physician: Doris Swift MD Primary Care Provider: Edda Lam MD Consult Narrative Narrative: OB consult for: 1. Chorioamnionitis/Endometritis 2. Obstetrical anal sphincter injury - 3rd degree laceration 3. Acute blood loss anemia Overnight patient had complaint of vaginal pain. Her pain is controlled with oral pain medications, however, patient has not had to exert herself yet. She is not yet tolerating regular diet. She has passed flatus. She is not yet ambulating without difficulty. Lochia is scant. Vaginal packing still in place. She is urinating with pierce - will remove this AM. Patient denies chest pain, SOB, n/v, headache, RUQ pain, vision changes, dizziness. History of Present complications comment: Prolonged rupture membranes, hemorrhage, fever. History History 1 Elective abortions Para 0 Spontaneous abortions Hx # Term Pregnancies Ectopic pregnancies Hx # Pregnancies Multiple births Number of Living Children 0 Labs Blood type: A (+) positive Rubella: immune RPR/VDLR: nonreactive GBS status: negative HBsAG: negative OB Labs: Lab Assessment Start: 03/12/22 19:16 Freq: ONCE Status: Complete Protocol: PC.OBGBS Activity Type Activity Date Activity User E-sign Co-sign Detail Recorded Client Recorded Date Recorded By Document 03/12/22 19:51 [facility] [id number] 03/12/22 19:52 [facility] 03/12/22 19:51 Lab Assessment GBS Negative Previous with Invasive GBS No Is Patient Allergic to Penicillin No No Treatment Needed OK Maternal Blood Type A Maternal RH Factor Positive Evaluate Maternal Rubella Immune Status Immune Hepatitis B Surface Antigen Negative Maternal HIV Status Negative Maternal Syphillis (RPR) Status Negative Are Labs Available Yes PFSH PFS Medical History (Updated 03/14/22 @ 18:58 by Doris Swift MD) COVID-19 Elective surgery (normal spontaneous vaginal delivery) (03/14/22) fever (03/14/22) hemorrhage (03/14/22) Prolonged rupture of membranes (~03/10/22) Third degree perineal laceration during delivery with less than 50% tear of external anal sphincter (03/14/22) Surgical History No significant past surgical history Social History Smoking Status: Never smoker Do you use any of these nicotine containing products: None Second hand tobacco smoke exposure: No How often do you have a drink containing alcohol: never How often do you have six or more drinks on one occasion: Never AUDIT-C Alcohol total score: 0 Non-prescribed substance use: denies use service: No Meds Home Medications and Allergies Home Medications Medication Instructions Recorded Confirmed Type aspirin 81 mg tablet,delayed 81 mg PO DAILY 11/04/21 03/12/22 History release famotidine 20 mg tablet 20 mg PO Q12H 02/22/22 03/12/22 History polyethylene glycol 3350 17 17 g PO DAILY 02/22/22 03/12/22 History gram/dose oral powder Allergies Allergy/AdvReac Type Severity Reaction Status Date / Time No Known Drug Allergies Allergy Verified 03/13/22 09:23 OB - H&P: Exam Physical Exam: Vital signs: Temp Pulse Resp BP Pulse Ox O2 Del Method 97.4 F L 94 16 109/77 98 03/15/22 05:20 03/15/22 05:20 03/15/22 05:20 03/15/22 05:20 03/15/22 05:20 03/15/22 05:20 Narrative: Physical exam: General: No acute distress Psych: Alert and oriented x3, full affect HEENT:Conjunctival pallor noted Abdomen: Fundus is firm approximately 3 cm below umbilicus. Rest of abdomen is soft, non tenderness without rebound, or guarding, no masses, no hepatosplenomegaly Skin: No lesions or rashes Lower extremities: No edema or erythema. SCDs in place. Pelvic exam: Vaginal packing and Pierce cath in place. Vaginal packing was noted to soaked when removed. However, no bleeding noted after removal. OB - Results Labs Labs: Short CBC 03/14/22 03/15/22 Range/Units 17:30 06:05 WBC 21.53 H 18.92 H (4.50-11.00) K/uL Hgb 10.9 L 7.9 L* (12.0-16.0) gm/dL Hct 31.4 L 22.7 L (33.0-51.0) % Plt Count 241 207 (140-440) K/uL Urine 03/14/22 Range/Units 17:30 Urine Color Yellow (Yellow) Urine Appearance Clear (Clear) Urine pH 7.0 (5.0-8.5) Ur Specific [place] 1.020 (1.000-1.030) Urine Protein 2+ A (Negative) Urine Glucose (UA) Negative (Negative) OB - CN: A/P Assessment and Plan (1) (normal spontaneous vaginal delivery): Status: Acute (2) fever: Status: Acute (3) hemorrhage: Status: Acute (4) Third degree perineal laceration during delivery with less than 50% tear of external anal sphincter: Status: Acute (5) Term : Status: Acute (6) PROM (premature rupture of membranes): Status: Acute (7) Obesity (BMI 30.0-34.9): Status: Acute (8) Female genital mutilation: Status: Acute (9) COVID-19 affecting in third trimester: Status: Acute (10) Prolonged rupture of membranes: Status: Acute Plan Review: - Admitted for: Prolonged rupture of membrane/ IOL - Procedure(s): , 3rd degree laceration repair, vaginal packing hemorrhage - 2/2 to uterine atony and obstetrical laceration - Quantitative blood loss: 1133 mL - Urine output: 0.42 cc/kg/hr - Preop H/H: 12.9 - Postop H/H: 10.9 --> 7.9 - Vaginal packing removed this AM. Minimal bleeding after - VSS - Currently asymptomatic - Will reassess need for transfusion when patient is ambulating more Chorioamnionitis/Endometritis - Tmax of 102.9 x 2 - Tlast of 102.9 at 1608 - WBC 21.53 --> 18.92 - Abd exam: minimal tenderness - Currently on zosyn. Will keep abx for 24 hours afebrile Obstetrical anal sphincter injury - 3rd degree laceration: repaired - Avoid constipation - Colace, miralax, and simethicone Postoperative care: - Diet: Advance as tolerated - Fluid: Encourage oral intake - Pain: Tylenol, Ibuprofen, and oxycodone - DVT prophylaxis: SCDs when not ambulating Baby's Status - Fetus: 8, 9 3085 g, female - Location: bedside Dispo: Patient is PPD#1. Not yet 24 hours .
[2022-03-15 11:46] VITALS: BP 109/69; PULSE 94; RESP 16; O2SAT 98
[2022-03-15] MEDS: polyethylene glycoL 3350 17 GM PACK PO (12:28)
[2022-03-15 19:38] VITALS: BP 117/80; PULSE 126; RESP 18; TEMP 36.7; O2SAT 100
[2022-03-16 01:18] VITALS: BP 102/68; PULSE 110; RESP 16; TEMP 36.3; O2SAT 98
[2022-03-16] MEDS: IBUPROFEN 600 MG TABLET PO ×3 (01:22→14:12)
[2022-03-16] MEDS: ACETAMINOPHEN 500 MG TABLET 1000 MG PO (04:36)
[2022-03-16 07:35] VITALS: BP 100/67; PULSE 109; RESP 16; TEMP 36.8; O2SAT 98
--- NOTE | 2022-03-16 09:45 | PM.OBDSVD1 ---
DS: Providers Provider Time Seen by Provider: 09:45 Date Seen: 03/16/22 Date of admission: 03/12/22 18:56 Primary care physician: Edda Lam MD Admitting Clinician: Edda Lam MD Consults: GROCERY STOCK CLERK Dr. Doris Swift Attending Physician on discharge: Doris Swift MD Date of Discharge: 03/16/22 DS: Diagnosis Discharge Diagnosis (1) (normal spontaneous vaginal delivery): Status: Acute (2) Prolonged rupture of membranes: Status: Acute (3) Third degree perineal laceration during delivery with less than 50% tear of external anal sphincter: Status: Acute (4) hemorrhage: Status: Acute (5) fever: Status: Acute Exam Narrative: Exam Narrative: General appearance: Well-appearing adult female. Alert, oriented and appropriate. Up and moving about the room. No acute distress. HEENT: EOMI, no conjunctival injection. No nasal discharge. Mucous membranes moist. Neck: Supple. Cardiovascular: Regular rate and rhythm, no rubs, murmurs or extra heart sounds. Pulmonary: Clear to auscultation bilaterally. No wheezes, rales or rhonchi. Breathing comfortably on room air. Abdomen: Soft, nondistended. Fundus firm at the umbilicus. Mild fundal tenderness to palpation. Extremities: Warm and well perfused. No lower extremity edema. Skin: Warm and dry. No rashes appreciated. Neuro: Cranial nerves grossly intact. Sensation and strength grossly intact. No focal deficits. Psych: Appropriate affect. Const: Vital Signs, click to edit/add: Vital Signs - 24 hr 03/15/22 11:46 03/15/22 19:38 03/16/22 01:18 Temperature 98.0 F 97.4 F L Pulse Rate [Pulse Oximeter] 94 126 H 110 H Respiratory Rate 16 18 16 Blood Pressure [Ri ght Arm] 109/69 117/80 102/68 Pulse Oximetry 98 100 98 Oxygen Delivery Me thod Room Air Room Air Room Air 03/16/22 07:35 Temperature 98.3 F Pulse Rate [Pulse Oximeter] 109 H Respiratory Rate 16 Blood Pressure [Ri ght Arm] 100/67 Pulse Oximetry 98 Oxygen Delivery Me thod Room Air OB - DS: Summary Hospital Course Hospital Course: The patient is a 26 year old G 1 now P 1 at 38+6 weeks gestation that was admitted to the Center on 03/12/22 for PROM. She reported fluid leaking at a routine OB visit on the day of admission, AmniSure positive. SROM estimated to be 72 hours prior. Underwent induction of labor including Cytotec x6 doses, Cervidil, Pitocin. Remained afebrile throughout the 1st and 2nd stage of labor. She had a spontaneous vaginal delivery at 1546 on 03/14/2022 complicated by hemorrhage, partial third-degree perineal laceration, and fever. She was treated with Zosyn until 24 hours afebrile. hemoglobin was found to be 7.9. Mild symptoms, blood transfusion was not required. She was discharged with iron. She delivered a viable female . She is breast and bottle feeding. the patient has done well. At the time of discharge, pain well controlled with Tylenol and ibuprofen. Normal urination and bowel movements. Moderate lochia. Gender: Female Time Spent with Patient Time attestation: Total time spent providing and/or coordinating discharge services: Discharge Plan Discharge Disposition: Home, Self-Care Date of Admission: 03/12/22 18:56 Attending Provider on Discharge: Edda Lam Consulting Providers: Doris Swfit Primary Care Provider: Edda Lam I Condition: Stable Anticipated Discharge Date/Time: 03/16/22 09:38 Discharge Medications: New acetaminophen 500 mg Tablet 1,000 mg PO Q6H PRN30 Days Qty: 30 0RF ferrous sulfate 325 mg (65 mg iron) Tablet 325 mg PO DAILYWM 60 Days Qty: 60 0RF ibuprofen 600 mg Tablet 600 mg PO Q6H PRN30 Days Qty: 30 0RF simethicone 80 mg Tablet,Chewable 80 - 160 mg PO Q4H PRN (Reason: gas) 30 Days Qty: 30 0RF docusate sodium [Colace] 100 mg capsule 100 mg PO DAILY Qty: 30 0RF Continued famotidine 20 mg tablet 20 mg PO Q12H Label Comments: TAKE ONE TABLET BY MOUTH TWICE A DAY polyethylene glycol 3350 17 gram/dose powder 17 g PO DAILY Label Comments: MIX ONE SCOOP (17GM) IN LIQUID THEN TAKE BY MOUTH ONCE DAILY. Discontinued aspirin 81 mg tablet,delayed release (DR/EC) 81 mg PO DAILY Label Comments: TAKE ONE TABLET BY MOUTH EVERY DAY WITH MEAL Discharge Orders: Discharge Order (Routine); Ordered 03/16/22 Ordered By: Edda Lma Follow Up Appointments: Edda Lam MD [Primary Care Provider] - Forms: [facility] Info Instructions
[2022-03-16] MEDS: polyethylene glycoL 3350 17 GM PACK PO (09:52)
== END 2022-03-16 14:40 | disposition home or self-care (01) | DRG 768 ==
PROVIDERS: Admitting Provider Family Medicine; PCP Family Medicine; Visit Provider Obstetrics & Gynecology
DX: O42.12 Full-term premature rupture of membranes, onset of labor more than 24 hours following rupture (principal); Z37.0 Single live birth; O70.20 Third degree perineal laceration during delivery, unspecified; O72.1 Other immediate postpartum hemorrhage; D62 Acute posthemorrhagic anemia; O86.4 Pyrexia of unknown origin following delivery; O90.81 Anemia of the puerperium; O70.0 First degree perineal laceration during delivery; O71.82 Other specified trauma to perineum and vulva; O99.214 Obesity complicating childbirth; R74.01 Elevation of levels of liver transaminase levels; O34.83 Maternal care for other abnormalities of pelvic organs, third trimester; N90.810 Female genital mutilation status, unspecified; Z86.16 Personal history of COVID-19; Z3A.38 38 weeks gestation of pregnancy
CPT/HCPCS: 01967; 36415; 59200; 81001; 85025; 85384; 85610; 85730; 86850; 86900; 86901; 87040; 87086; 87635; 88307; A9270; J2210; J2270; J2543; J2795; J3010; J7120

== ENCOUNTER 2023-12-06 10:43 | Emergency (ER) | payer MEDICAID, SELFPAY ==
[2023-12-06 10:58] VITALS: BP 122/83; PULSE 74; RESP 18; TEMP 36.6; O2SAT 98
--- NOTE | 2023-12-06 11:57 | ED_ITS ---
HPI - General Adult General Chief complaint: Urogenital Problems, Female Stated complaint: lower abdominal pain Time Seen by Provider: 12/06/23 11:34 Source: patient Mode of arrival: ambulatory Limitations: no limitations History of Present Illness HPI narrative: 28-year-old female presenting today with perineal pain going on for 3 days. She has noticed swelling on the right side. She denies any systemic symptoms, no vaginal discharge. No difficulty urinating or having bowel movements. She denies . She is generally healthy, takes no medications. Related Data Previous Rx's ?Medication ?Instructions ?Recorded acetaminophen 500 mg tablet 1,000 mg (2 x 500 mg) PO Q6H PRN 03/16/22 30 days #30 tabs amoxicillin 875 mg-potassium 1 tab PO BID 5 days #10 tabs 12/06/23 clavulanate 125 mg tablet Allergies Allergy/AdvReac Type Severity Reaction Status Date / Time No Known Drug Allergies Allergy Verified 12/06/23 11:12 Review of Systems Status of ROS: Reports: 6 or more systems reviewed and unremarkable except as noted in History and below [facility] Medical History (normal spontaneous vaginal delivery) (03/14/22) ?O80 - Encounter for full-term uncomplicated delivery (ICD-10) Third degree perineal laceration during delivery with less than 50% tear of external anal sphincter (03/14/22) ?O70.21 - Third degree perineal laceration during delivery, IIIa (ICD-10) hemorrhage (03/14/22) ?O72.1 - Other immediate hemorrhage (ICD-10) fever (03/14/22) ?O86.4 - Pyrexia of unknown origin following delivery (ICD-10) Prolonged rupture of membranes (~03/10/22) ?O42.90 - Premature rupture of membranes, unspecified as to length of time between rupture and onset of labor, unspecified weeks of gestation (ICD-10) Elective surgery ?Z41.9 - Encounter for procedure for purposes other than remedying health state, unspecified (ICD-10) COVID-19 ?U07.1 - COVID-19 (ICD-10) Surgical History No significant past surgical history Social History Smoking Status: Never smoker Do you use any of these nicotine containing products: None Second hand tobacco smoke exposure: No How often do you have a drink containing alcohol: never How often do you have six or more drinks on one occasion: Never AUDIT-C Alcohol total score: 0 Non-prescribed substance use: denies use service: No Exam Narrative: Exam Narrative: Well-nourished well-developed patient , uncomfortable. Alert and oriented. Answers questions appropriately. Mood and affect are appropriate. Thoughts are goal oriented and rational. No tangential or magical thinking noted. Patient speaks in full sentences without needing to catch her breath. HEENT: Normocephalic atraumatic. Pupils are equally round reactive to light. Extraocular muscles are intact. Conjunctivae are moist without any icterus noted. Moist mucous membranes. Extremities: No edema. Skin: No rashes. exam reveals a fluctuant swollen area of the perirectal area on the right side. Const: Vital Signs, click to edit/add: Vital Signs - 24 hr 12/06/23 10:58 Temperature 97.9 F Pulse Rate [Pulse Oximeter] 74 Respiratory Rate 18 Blood Pressure [Ri ght Upper Arm] 122/83 Pulse Oximetry 98 Oxygen Delivery Me thod Room Air Course Course ED Course: The area was cleaned in the usual sterile manner and anesthetized with lidocaine. An 11 blade was used to puncture the area most fluctuance and approximately 3 mL of ben pus was expelled. The wound culture was obtained. The abscess was whole explored with a Q-tip. Vital Signs Vital signs: Initial Vital Signs Temperature 97.9 F 12/06/23 10:58 Temperature Source Oral 12/06/23 10:58 Pulse Rate 74 12/06/23 10:58 Respiratory Rate 18 12/06/23 10:58 Blood Pressure 122/83 12/06/23 10:58 Blood Pressure Mean 96 12/06/23 10:58 Blood Pressure Position Sitting 12/06/23 10:58 Pulse Oximetry 98 12/06/23 10:58 Oxygen Delivery Method Room Air 12/06/23 10:58 Vital Signs Temperature 97.9 F 12/06/23 10:58 Pulse Rate 74 12/06/23 10:58 Respiratory Rate 18 12/06/23 10:58 Blood Pressure 122/83 12/06/23 10:58 Pulse Oximetry 98 12/06/23 10:58 Oxygen Delivery Method Room Air 12/06/23 10:58 Temperature 97.9 F 12/06/23 10:58 Pulse Rate 74 12/06/23 10:58 Respiratory Rate 18 12/06/23 10:58 Blood Pressure 122/83 12/06/23 10:58 Pulse Oximetry 98 12/06/23 10:58 Oxygen Delivery Method Room Air 12/06/23 10:58 Medical Decision Making MDM Narrative Medical decision making narrative: 28-year-old female with a small perirectal abscess. I and D in the ER today. Will treat with Augmentin for 5 days. She will follow up with primary care in 1 week. Discharge Plan Discharge Clinical Impression: Perirectal abscess Patient Disposition: Home, Self-Care Condition: Stable Additional Instructions: Take all antibiotics as prescribed. Follow-up with your primary care provider in approximately 1 week. If the area becomes swollen and painful again, return to the ER. Prescriptions: New amoxicillin-pot clavulanate 875-125 mg tablet 1 tab PO BID 5 Days Qty: 10 0RF No Action acetaminophen 500 mg Tablet 1,000 mg PO Q6H PRN30 Days Qty: 30 0RF Hold Instructions: Order Change Follow Up/Referrals: Edda Lam MD [Primary Care Provider] - Stand Alone Forms: [facility] Info Instructions
--- OUTSIDE RECORDS SUMMARY | 2023-12-06 12:27 | XMS_ITS | Clinical Summary ---
Author Organization [facility] Address [place], [place] [address] Care Team Providers Care Chip Machine Operator Name Role Phone Abiel Teague MD Primary Care Provider Allergies No known active allergies Medications Medication Sig Dispensed Refills Start Date End Date Status famotidine (PEPCID) 20 mg tabletIndications:Ga stroesophageal reflux disease, unspecified whether esophagitis present Take 1 Tablet (20 mg) by mouth 2 times daily. 180 Tablet 3 08/28/2021 Active psyllium 0.52 gram capsuleIndications:C onstipation, acute Take 1-2 Capsules by mouth once daily. 180 Capsule 1 01/22/2022 Active durable medical equipment (DME)Indications:Car e and examination of lactating mother Double electric breast pump. 1 Each 02/26/2022 Active docusate (COLACE) 100 mg capsule 03/16/2022 Active ibuprofen (ADVIL; MOTRIN) 600 mg tablet 03/16/2022 Active multivitamin chew Chew 1 Tablet by mouth once daily. 0 09/07/2022 Active Active Problems Problem Noted Date Diagnosed Date Prolonged rupture of membranes 03/19/2022 Obesity (BMI 30.0-34.9) 03/19/2022 COVID-19 affecting in third trimester 03/19/2022 Third degree perineal lacera tion during delivery with less than 50% tear of external anal sphincter 03/14/2022 hemorrhage 03/14/2022 (normal spontaneous vaginal delivery) 03/14 10/01/2021 Overview: Problem List: Obesity. Pre-gravid BMI 32 Transaminitis, mild. Suspect NAFLD High risk for pre-E. ASA 15-36 weeks Hx of female genital mutilation s/p lysis of adhesions Estimated Date of Delivery: 03/21/22 Patient's last menstrual period was 06/14/2021 (exact date). Last Tdap- 12/23/2021 Last Flu vaccine- 12/23/2021 Glucose (GTT) result- Component Latest Ref Rng & Units 11/30/2021 HEMOGLOBIN 12.0 - 16.0 g/dL 12.2 MCV 80 - 100 fL 96 GLUCOSE,GESTATIONAL 65 - 140 mg/dL 128 TREPONEMA PALLIDUM Negative Negative 20 week US: FINDINGS: Sonographic imaging demonstrates a single living intrauterine gestation. Fetus demonstrates a regular cardiac rate of 152 beats per minute. Fetus has a transverse position, head maternal right. The placenta lies posteriorly without evidence of placenta previa. Amniotic fluid volume appears normal. Single deepest vertical pocket: 4.9 cm. The cervix is closed and measures 4.6 cm in length. The composite ultrasound gestational age is calculated at 19 weeks 5 days with an estimated sonographic due date of 03/25/2022. The estimated weight is 307 grams which lies at the 17th %. The following biometric measurements were obtained: Biparietal diameter: 4.6 cm/19 weeks 6 days 30th% Head circumference: 16.2 cm/19 weeks 1 day 4th% Abdominal circumference: 14.2 cm/19 weeks 4 days 22nd% Femur length: 3.2 cm/20 weeks 0 days 31st% The HC/AC ratio measures: 1.14 range (1.09-1.26) On anatomic survey, there is a normal appearance of the cerebral ventricles, cavum septi pellucidi, cisterna magna and cerebellum. The nose, lips, and facial profile appear normal. The cervical, thoracic and lumbar spine are well visualized and appear normal. There is a normal four-chamber heart view and the left and right ventricular outflow tracts appear normal. The diaphragm and stomach appear normal. The kidneys and bladder also appear normal. There is a normal three- vessel cord and cord insertion site. The four extremities appear normal. IMPRESSION: Normal OB ultrasound exam with concordance of clinical and sonographic dating. No intrinsic abnormalities noted on anatomic survey. No Known Allergies OB History Para Term AB Living 1 0 0 0 0 0 SAB IAB Ectopic Multiple Live Births 0 0 0 0 0 # Outcome Date GA Lbr Forrest/2nd Weight Sex Delivery Anes PTL Lv 1 Current Create lab flowsheet for OB labs- Component Latest Ref Rng & Units 07/31/2021 07/31/2021 07/31/2021 10:53 AM 10:53 AM 10:53 AM ABORH A Rh Positive ANTIBODY SCREEN Negative Negative SPECIMEN EXPIRATION DATE/TIME 08/03/21 23:59 VARICELLA ZOSTER IGG ANTIBODY Positive 463.9 RUBELLA IGG ANTIBODY CHLAMYDIA PROBE Negative N GONORRHOEAE PROBE Negative HIV-1/HIV-2 ANTIBODY Non-Reactive Non-Reactive TREPONEMA PALLIDUM Negative Negative HBSAG Nonreactive Nonreactive HEPATITIS C ANTIBODY Non-Reactive Non-Reactive Component Latest Ref Rng & Units 07/31/2021 07/31/2021 10:53 AM 10:53 AM ABORH ANTIBODY SCREEN Negative SPECIMEN EXPIRATION DATE/TIME VARICELLA ZOSTER IGG ANTIBODY RUBELLA IGG ANTIBODY Positive 1.26 CHLAMYDIA PROBE N GONORRHOEAE PROBE HIV-1/HIV-2 ANTIBODY Non-Reactive TREPONEMA PALLIDUM Negative HBSAG Nonreactive HEPATITIS C ANTIBODY Non-Reactive Past Medical History: . Date ? ? COVID-19 11/08/2019 ? ? COVID-19 04/18/2021 Past Surgical History: . Laterality Date ? ? FEMALE CIRCUMCISION ? ? ID LYSIS LABIAL ADHESIONS 05/08/2021 No data on file. ob Problems (from 07/31/21 to present) No problems associated with this episode. Marjorie Arredondo RN.....10/01/2021 4:44 PM Female genital mutilation 05/08/2021 Immunizations Name Administration Dates Next Due COVID-19 vaccine ([employer] 30mcg/0.3mL) P F, MDV 03/23/2021 HepA-HepB (Twinrix) 05/24/2017 Inactivated Polio Vaccine 05/24/2017 Influenza, IIV4 12/23/2021 MMR 05/24/2017 Meningococcal Vaccine (Menveo) 05/24/2017 Tdap 12/23/2021,05/24/2017 Varicella Vaccine 05/24/2017 Social History Tobacco Use Types Packs/Day Years Used Date Smoking Tobacco: Never Smokeless Tobacco: Never Tobacco Cessation:Counseling Given: Yes Alcohol Use Standard Drinks/Week Comments No 0 (1 standard drink = 0.6 oz pur e alcohol) PHQ-2 Answer Date Recorded PHQ-2 TOTAL SCORE 0 01/22/2022 Social Connections Answer Date Recorded Frequency of Communication with Friends and Fami ly Not on file 08/30/2022 Financial Resource Strain Answer Date R ecorded Difficulty of Paying Living Expenses 3 08/28/2021 Difficulty of Paying Living Expenses Not on file 08/28/2021 Food Insecurity Answer Date Recorded Worried About Running Out of Food in the Last Ye ar 1 08/28/2021 Transportation Needs Answer Date Record ed Lack of Transportation (Medical) 1 08/28/2021 Housing Stability Answer Date Recorded Unable to Pay for Housing in the Last Year 1 08/28/2021 Sex and Gender Information Value Date Recorded Sex Assigned at Not on file Gender Identity Not on file Sexual Orientation Not on file Obstetrics History Para Term AB IAB SAB Ectopic Multiple Livin g Live Births 1 Date Outcome GA Total Labor Labor/2nd/3rd Weight Sex Type Anes PTL Janneth A1 A5 Name Clin Last Filed Vital Signs Vital Sign Reading Time Taken Comments Blood Pressure 102/70 09/07/2022 3:47 PM CDT Pulse 60 09/07/2022 3:47 PM CDT Temperature 37.4 ??C (99.4 ??F) 03/19/2022 11:[address] Respiratory Rate 16 05/08/2021 2:15 PM SUB ARC OPERATOR Oxygen Saturation 98% 03/19/2022 11:38 AM SUB ARC OPERATOR Inhaled Oxygen Concentration - - Weight 97.5 kg (215 lb) 09/07/2022 3:47 PM CDT Height 167.6 cm (5' 6) 09/07/2022 3:47 PM CDT Body Mass Index 34.7 09/07/2022 3:47 PM CDT Plan of Treatment Health Maintenance Due Date Last Done Comments HPV series for age 9-26 (1 - 3-dose series) 2012 Pap test for age 21-65 2018 Depression screening for age 12+ 01/22/2023 01/22/2022, 10/01/2021, 09/28/2021, Additional history exists BMI (ht and wt on same day) for age 18+ 09/08/2023 09/07/2022, 07/31/2021, 03/23/2021, Additional history exists Influenza for age 9-49 12/04/2023 12/23/2021 Tetanus booster 12/24/2031 12/23/2021, 05/24/2017 HIV for age 15-65 Completed 07/31/2021, 05/08/2021 Hepatitis C screening for age 18-79 Completed 07/31/2021, 05/08/2021 Tdap Completed 12/23/2021, 05/24/2017 COVID-19 vaccine series Completed 02/09/2023, 03/23 Pneumococcal series for age 6-64 Aged Out No longer eligible based on patient's age to complete this topic Procedures Procedure Name Priority Date/Time Associated Diagnosis Comments ANTI HIV 1/2 Routine 07/31/2021 10:53 AM CDT Encounter for supervision of normal first in first trimester ANTI HCV Routine 07/31/2021 10:53 AM CDT Encounter for supervision of normal first in first trimester from Last 3 Months or Most Recently Relevant to Health Maintenance Results * ANTI HCV (07/31/2021 10:53 AM CDT) HEPATITIS C ANTIBODY Non-React ligia Non-React ligia 07/31/2021 10:30 PM CDT [facility] Comment:Antibodies to HCV no t detected; does not exclude the possibility of exposure to HCV. Blood BLOOD SPECIMEN / Unknown Venipuncture / Unknown 07/31/2021 10:53 AM CDT 07/31/2021 10:53 AM CDT Edda Lam MD [facility] [address] [place] [address], [place] * ANTI HIV 1/2 (07/31/2021 10:53 AM CDT) HIV-1/HIV-2 ANTIBODY Non-Reacti ve Non-Reacti ve 07/31/2021 10:35 PM CDT [facility] Comment:HIV-1 p24 and HIV-1/ HIV-2 Ab not detected. Blood BLOOD SPECIMEN / Unknown Venipuncture / Unknown 07/31/2021 10:53 AM CDT 07/31/2021 10:53 AM CDT Edda Lam MD SEND OUTS [facility] [address] [place] [address], [place] from Last 3 Months or Most Recently Relevant to Health Maintenance Additional Health Concerns Infection Onset Date Last Indicated COVID History Comment:Patient tested positive for COVID on 04/18/21 and has met criteria to discontinue Enhanced Respiratory precautions. Any other reason for isolation precautions based on the patient's history or new diagnosis (ex. MRSA, C.diff, etc) should be followed as usual. Per current [facility] guidance it is required to use N95/half face + eye protection or PAPR/CAPR for aerosol generating procedures in any patient. 04/29/2021 04/29/2021 Advance Directives * Full Code (Latest Code Status on File) Date Activated Date Inactivated Comments 05/08/2021 11:08 AM 05/08/2021 4:24 PM Question Answer Comments Code Status Discussion: Unable to Assess Preferences, Provider to review later Care Teams Chip Machine Operator Relationship Specialty Start Date End Date Abiel Teague MD [address] [facility] [place] [id number] PCP - General Family Practice 05/09/17
--- OUTSIDE RECORDS SUMMARY | 2023-12-06 12:27 | XMS_ITS | Patient Health Record ---
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
== END 2023-12-06 12:25 | disposition home or self-care (01) ==
LOC: ED 12:23
PROVIDERS: Emergency Provider Family Medicine; PCP Family Medicine
DX: K61.0 Anal abscess (principal)
CPT/HCPCS: 46050; 87070; 87186; 99283; 99284